=== PATIENT | female | born 1970 | race Caucasian/White ===

== ENCOUNTER 2018-01-07 10:24 | Observation (INO) | payer OTHER ==
[~2018-01-07 10:24] MED LIST: CEFAZOLIN 1 GM INJ; CEFAZOLIN 2 GM/50 ML (PMX) 50 ML IVPB; DEXAMETHASONE 4 MG/ML 1 ML INJ; METOCLOPRAMIDE 10 MG INJ; SOD CHLORIDE 0.9% 1,000 ML IV
[2018-01-07 12:22] LABS: ADD MAN DIFF? NO
[2018-01-07 12:25] LABS: WHITE BLOOD COUNT 6.8 10^3/ul (4.8-10.8)
[2018-01-07 12:25] LABS: BASOPHILS % 0.3 % (0.0-2.0); EOSINOPHILS # 0.3 10^3/ul (0.0-0.5); EOSINOPHILS % 4.7 % (0.0-7.0); HEMATOCRIT 39.2 % (37.0-47.0); HEMOGLOBIN 12.9 g/dl (12.0-16.0); LYMPHOCYTES # 1.6 10^3/ul (0.8-2.9); LYMPHOCYTES % 23.5 % (15.0-51.0); MEAN CORPUSCULAR HEMOGLOBIN 30.3 pg (29.0-33.0); MEAN CORPUSCULAR HGB CONC 32.9 g/dl (32.0-37.0); MONOCYTE # 0.5 10^3/ul (0.3-0.9); MONOCYTES % 6.8 % (0.0-11.0); NEUTROPHIL # 4.4 10^3/ul (1.6-7.5); NEUTROPHILS % 64.6 % (39.0-77.0); PLATELET COUNT 330 10^3/UL (140-415); RED BLOOD COUNT 4.26 10^6/ul (4.20-5.40); RED CELL DISTRIBUTION WIDTH 14.8 % (11.5-14.5)
[2018-01-07 12:44] LABS: INR 0.85; PROTIME 11.7 Sec (11.9-14.9); PT RATIO 0.9
[2018-01-07 12:45] LABS: PARTIAL THROMBOPLASTIN TIME 30.4 Sec (25.0-35.0)
[2018-01-07 12:47] LABS: ALANINE AMINOTRANSFERASE 29 IU/L (13-69); ALBUMIN 3.9 g/dl (3.3-4.9); ALBUMIN/GLOBULIN RATIO 1.02; ALKALINE PHOSPHATASE 85 IU/L (42-121); ANION GAP 14 (8-16); ASPARTATE AMINO TRANSFERASE 45 IU/L (15-46); BILIRUBIN,INDIRECT 0.6 mg/dl (0-1.1); BILIRUBIN,TOTAL 0.6 mg/dl (0.2-1.3); BLOOD UREA NITROGEN 10 mg/dl (7-20); CALCIUM 8.9 mg/dl (8.4-10.2); CARBON DIOXIDE 26 mmol/L (21-31); CHLORIDE 106 mmol/L (97-110); CREATININE 0.48 mg/dl (0.44-1.00); GLUCOSE 88 mg/dl (70-220); SODIUM 141 mmol/L (135-144); TOTAL PROTEIN 7.7 g/dl (6.1-8.1)
[2018-01-07] MEDS ORDERED: FENTAnyl 50 MCG/ML VIAL (14:58)
[2018-01-07] MEDS ORDERED: MIDAZOLAM 1 MG/ML 2 ML INJ (14:59)
[2018-01-07] MEDS ORDERED: FENTAnyl 50 MCG/ML VIAL IV ×2 (15:00)
[2018-01-07] MEDS ORDERED: DIPHENHYDRAMINE 50 MG INJ IV (15:00)
[2018-01-07] MEDS ORDERED: ONDANSETRON 4 MG INJ (15:00)
[2018-01-07] MEDS ORDERED: ONDANSETRON 4 MG INJ IV ×2 (15:00→16:30)
[2018-01-07] MEDS ORDERED: IPRATROPIUM (NEB) 0.5 MG/2.5 ML AMP HHN (15:00)
[2018-01-07] MEDS ORDERED: MEPERIDINE 25 MG INJ IV (15:00)
[2018-01-07] MEDS ORDERED: HYDROmorphONE 1 MG/5 ML IV SYRINGE IV (15:00)
[2018-01-07] MEDS ORDERED: LIDOCAINE 2% (SDV) 5 ML INJ (15:02)
[2018-01-07] MEDS ORDERED: PROPOFOL 20 ML (15:02)
[2018-01-07] MEDS: ISOSULFAN BLUE 1% 5 ML INJ SC (15:19)
[2018-01-07] MEDS ORDERED: LACTATED RINGER'S 1,000 ML IV (15:30)
[2018-01-07] MEDS ORDERED: ACETAMINOPHEN 1000MG/100ML IV 100 ML IVPB (16:30)
[2018-01-07] MEDS: HYDROmorphONE 1 MG/5 ML IV SYRINGE IV (17:18)
[2018-01-07] MEDS: D5W-0.45 NACL + KCL 20 MEQ 1,000 ML IV (21:08)
[2018-01-07] MEDS: morphine 2 MG INJ IV (23:46)
[2018-01-08] MEDS: D5W-0.45 NACL + KCL 20 MEQ 1,000 ML IV ×3 (04:49→14:19)
[2018-01-08] MEDS: morphine 2 MG INJ IV (09:30)
[2018-01-08] MEDS: ACETAMINOPHEN 325 MG TAB PO ×2 (14:13→22:07)
[2018-01-08] MEDS: PANTOPRAZOLE (EC) 40 MG TAB PO (14:13)
[2018-01-08] MEDS: NA PHOSPHATE/BIPHOS 133 ML ENEMA PR (18:16)
[2018-01-08] MEDS: HYDROCODONE/APAP (5/325) TAB PO (18:57)
[2018-01-09] MEDS: D5W-0.45 NACL + KCL 20 MEQ 1,000 ML IV ×2 (00:31→08:00)
[2018-01-09] MEDS: HYDROCODONE/APAP (5/325) TAB PO ×2 (02:23→12:29)
[2018-01-09] MEDS: PANTOPRAZOLE (EC) 40 MG TAB PO (05:42)
[2018-01-09 06:22] LABS: ADD MAN DIFF? NO
[2018-01-09 06:27] LABS: WHITE BLOOD COUNT 4.7 10^3/ul (4.8-10.8)
[2018-01-09 06:27] LABS: BASOPHILS % 0.2 % (0.0-2.0); EOSINOPHILS # 0.2 10^3/ul (0.0-0.5); EOSINOPHILS % 5.1 % (0.0-7.0); HEMATOCRIT 35.4 % (37.0-47.0); HEMOGLOBIN 11.6 g/dl (12.0-16.0); LYMPHOCYTES # 0.7 10^3/ul (0.8-2.9); MEAN CORPUSCULAR HEMOGLOBIN 30.1 pg (29.0-33.0); MEAN CORPUSCULAR HGB CONC 32.8 g/dl (32.0-37.0); MEAN CORPUSCULAR VOLUME 91.7 fl (82.0-101.0); MEAN PLATELET VOLUME 9.8 fl (7.4-10.4); MONOCYTE # 0.5 10^3/ul (0.3-0.9); MONOCYTES % 10.1 % (0.0-11.0); NEUTROPHIL # 3.3 10^3/ul (1.6-7.5); NEUTROPHILS % 70.4 % (39.0-77.0); PLATELET COUNT 228 10^3/UL (140-415); RED BLOOD COUNT 3.86 10^6/ul (4.20-5.40); RED CELL DISTRIBUTION WIDTH 14.8 % (11.5-14.5)
[2018-01-09] MEDS: ACETAMINOPHEN 325 MG TAB PO (08:44)
[2018-01-09 14:13] LABS: ANION GAP 11 (8-16); BLOOD UREA NITROGEN 5 mg/dl (7-20); CALCIUM 8.5 mg/dl (8.4-10.2); CARBON DIOXIDE 25 mmol/L (21-31); CHLORIDE 106 mmol/L (97-110); CREATININE 0.54 mg/dl (0.44-1.00); GLUCOSE 99 mg/dl (70-220); POTASSIUM 4.1 mmol/L (3.5-5.1); SODIUM 138 mmol/L (135-144)
== END 2018-01-09 16:20 | disposition home or self-care (01) ==
LOC: SDS 10:24 → REC 16:30 → PP2 20:57
DX: C50.412 Malignant neoplasm of upper-outer quadrant of left female breast (principal); C77.3 Secondary and unspecified malignant neoplasm of axilla and upper limb lymph nodes; Z17.0 Estrogen receptor positive status [ER+]
CPT/HCPCS: 19301; 80048; 80053; 85025; 85610; 85730; 88307; 88331; 99217; G0378

== ENCOUNTER 2018-03-07 08:21 | Day surgery (SDC) | payer OTHER ==
[2018-03-07] MEDS ORDERED: POLYMYXIN/BACITRACIN 1L IRRIG IRR (09:00)
[2018-03-07] MEDS ORDERED: SOD CHLORIDE 0.9% 1,000 ML IV (09:00)
[2018-03-07] MEDS ORDERED: CEFAZOLIN 1 GM/50 ML (PMX) 50 ML IVPB (09:00)
[2018-03-07 09:29] LABS: ADD MAN DIFF? NO
[2018-03-07 09:35] LABS: WHITE BLOOD COUNT 5.2 10^3/ul (4.8-10.8)
[2018-03-07 09:35] LABS: BASOPHILS % 0.4 % (0.0-2.0); EOSINOPHILS # 0.2 10^3/ul (0.0-0.5); EOSINOPHILS % 3.3 % (0.0-7.0); HEMATOCRIT 35.8 % (37.0-47.0); HEMOGLOBIN 11.7 g/dl (12.0-16.0); LYMPHOCYTES # 1.1 10^3/ul (0.8-2.9); LYMPHOCYTES % 21.7 % (15.0-51.0); MEAN CORPUSCULAR HEMOGLOBIN 29.6 pg (29.0-33.0); MEAN CORPUSCULAR HGB CONC 32.7 g/dl (32.0-37.0); MEAN CORPUSCULAR VOLUME 90.6 fl (82.0-101.0); MEAN PLATELET VOLUME 9.9 fl (7.4-10.4); MONOCYTE # 0.4 10^3/ul (0.3-0.9); MONOCYTES % 8.3 % (0.0-11.0); NEUTROPHIL # 3.5 10^3/ul (1.6-7.5); NEUTROPHILS % 66.1 % (39.0-77.0); PLATELET COUNT 274 10^3/UL (140-415); RED BLOOD COUNT 3.95 10^6/ul (4.20-5.40)
[2018-03-07 09:50] LABS: INR 0.88; PT RATIO 0.9
[2018-03-07 09:51] LABS: PARTIAL THROMBOPLASTIN TIME 30.3 Sec (23.0-35.0)
[2018-03-07 10:04] LABS: ALANINE AMINOTRANSFERASE 27 IU/L (13-69); ALBUMIN/GLOBULIN RATIO 1.21; ALKALINE PHOSPHATASE 96 IU/L (42-121); ANION GAP 9 (5-13); ASPARTATE AMINO TRANSFERASE 26 IU/L (15-46); BILIRUBIN,INDIRECT 0.3 mg/dl (0-1.1); BILIRUBIN,TOTAL 0.3 mg/dl (0.2-1.3); BLOOD UREA NITROGEN 15 mg/dl (7-20); CALCIUM 8.6 mg/dl (8.4-10.2); CARBON DIOXIDE 24 mmol/L (21-31); CHLORIDE 111 mmol/L (97-110); CREATININE 0.44 mg/dl (0.44-1.00); Estimated GFR > 60 mL/min (>60); GLUCOSE 93 mg/dl (70-220); POTASSIUM 3.9 mmol/L (3.5-5.1); SODIUM 144 mmol/L (135-144); TOTAL PROTEIN 7.3 g/dl (6.1-8.1)
[2018-03-07] MEDS ORDERED: MIDAZOLAM 1 MG/ML 2 ML INJ (10:09)
[2018-03-07] MEDS ORDERED: FENTAnyl 50 MCG/ML VIAL (10:09)
[2018-03-07] MEDS ORDERED: HEPARIN 1000 UNITS/ML 10 ML INJ (10:19)
[2018-03-07] MEDS ORDERED: IODIXANOL LOCM 50 ML BTL (10:34)
[2018-03-07] MEDS: HYDROCODONE/APAP (5/325) TAB PO (13:16)
== END 2018-03-07 13:45 | disposition home or self-care (01) ==
LOC: SDS 08:21
DX: C50.912 Malignant neoplasm of unspecified site of left female breast (principal); E66.9 Obesity, unspecified; Z68.30 Body mass index [BMI] 30.0-30.9, adult
CPT/HCPCS: 36561; 80053; 85025; 85610; 85730; 93306